=== PATIENT | male | born 1960 | race Caucasian/White ===

== ENCOUNTER 2022-03-18 05:30 | Inpatient (IN) ==
--- NOTE | 2022-03-18 06:01 | Emergency Department Note ---
Impression & Plan Aspiration pneumonia ADMIT ED Provider Note HPI: The patient is a 61-year-old male with history of dementia, DNR/DNI comfort measures only CODE STATUS, presents the emergency department with possible aspiration from [facility]. Patient reportedly had some altered mentation at his nursing facility tonight, one of the caretakers attempted to give him some pudding because his blood sugar was noted to be low with his episode of altered mentation. Patient took a few bites and then reportedly was not swallowing the pudding very well and began to cough. He was then given 2 doses of IM glucagon. Blood sugar on recheck was 102 however the patient continued to have some increased work of breathing and then had some diminished mentation, oxygen saturation was noted to be 68% and therefore EMS was contacted. Patient maintained low oxygen saturations per EMS despite nasal cannula oxygen in the high 70s. On arrival here to the ED he has oxygen sa turations at 75% on nasal cannula oxygen. 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 Patient reportedly was lethargic, had hypoglycemia, apparently there was an attempt to feed him some pudding secondary to his hypoglycemia and he began to cough and had some increased work of breathing. On arrival here to the ED he is hypoxic on nasal cannula oxygen at 76%. He does display increased work of breathing and is coarse bilateral breath sounds. Patient has a history of dementia, he does arrive with POLST form that states he is DNR/DNI, comfort measures only. IV was established, lab work obtained, chest x-ray ordered, patient was maintained on high flow nasal cannula oxygen while clarification of his current condition was obtained. I did discuss the case with his son, Lencho, on the phone, he states that the patient is DNR/DNI, he would like limited interventions to this point to assist with the patient's comfort and breathing. He will be coming from the [facility] to see his father as he is noted to be in critical condition. Chest x-ray does show evidence of apparent opacity in the right lower lobe likely consistent with aspiration pneumonia, I think this is likely to be the source of the patient's hypoxia. He was given a dose of morphine for his increased work of breathing and comfort as well as Ativan for his anxiety, he does exhibit some delirium here in the ED as he is very anxious and removing his clothing and bed sheets, he has intermittently been pulling at his lines Morphine and Ativan did help with this. His oxygen saturations prior to admission are 84% on high flow nasal cannula. Patient's son is aware of his critical condition, plan will be for admission to the hospitalist service for palliative care consultation and comfort measures for the patient's respiratory failure. [facility] was consulted for admission. Critical Care Time: 40 minutes -Management of hypoxia with oxygen saturations of 76% despite nasal cannula oxygen, discussion with family members regarding plan of care and CODE STATUS, arrangement of admission for palliative care/comfort measures only Diagnosis: 1. Hypoxia 2. Aspiration PNA 3. Comfort measures only CODE STATUS Disposition: Admission Conrad Diaz DO Emergency Medicine Past Med/Surg History Medical History Dementia Diabetes Surgical History No pertinent past surgical history Social History Smoking Status: Unknown if ever smoked Hx Alcohol Use: No Hx Substance Use: No Preferred Language: Ukrainian Current Living Situation: Group Home Current Living Situation Comment: Currently living at [facility] current occupational status: retired Feels Safe at Home: Yes Home Meds Home Medications Medication Instructions Recorded Confirmed acetaminophen 325 mg capsule 325 mg PO QID PRN 05/10/21 05/10/21 bisacodyl 10 mg rectal suppository 10 mg ID DAILY PRN 05/10/21 05/10/21 (Dulcolax (bisacodyl)) divalproex 500 mg tablet,extended 500 mg PO BID tab 05/10/21 05/10/21 release 24 hr (Depakote ER) donepezil 10 mg tablet 10 mg PO DAILY 05/10/21 05/10/21 donepezil 5 mg tablet 5 mg PO DAILY 05/10/21 05/10/21 escitalopram oxalate 20 mg tablet 20 mg PO DAILY 05/10/21 05/10/21 (Lexapro) insulin aspart U-100 100 unit/mL 10 unit SUBCUT DAILY ml 05/10/21 05/10/21 subcutaneous cartridge (Novolog PenFill U-100 Insulin aspart) insulin aspart U-100 100 unit/mL 1 sliding scale dose SUBCUT 05/10/21 05/10/21 subcutaneous solution USEASDIRECTD insulin glargine 100 unit/mL (3 20 unit SUBCUT QAM 05/10/21 05/10/21 mL) subcutaneous pen (Lantus Solostar U-100 Insulin) lactulose 10 gram/15 mL oral 20 g PO BID 05/10/21 05/10/21 solution Results & Data (ED) Vital Signs Vital Signs - 24 hr 03/18/22 05:32 03/18/22 05:37 03/18/22 05:45 Temperature 35.9 C L Temperature Source Axillary Pulse Rate 102 H 99 H 104 H Pulse Rate [Apical] 105 H Pulse Rate from SpO2 Sensor 99 H 105 H Respiratory Rate 30 H 25 H 27 H Respiratory Effort / Characteristics Blood Pressure 111/70 166/103 H Blood Pressure [Right Arm] 166/103 H Blood Pressure Mean 83 124 Blood Pressure Mean [Right Arm] 124 Pulse Oximetry 75 L 82 L 83 L Oxygen Delivery Method Room Air High Flow Nasal Cannula Oxygen Flow Rate 40 Fraction of Inspired Oxygen 100 SaO2/FiO2 Ratio 83 Sepsis Recent Fever Within 48 Hours No Sepsis New/Unexplained Change in Mental Status No Sepsis Action Taken by Nursing Physician Notified Oxygen Flow Rate - Titration Fraction of Inspired Oxygen - Titration Pulse Oximetry Post Tiitration 03/18/22 05:52 03/18/22 05:56 03/18/22 06:00 Temperature Temperature Source Pulse Rate 115 H 105 H Pulse Rate [Apical] 104 H Pulse Rate from SpO2 Sensor 106 H Respiratory Rate 38 H 38 H Respiratory Effort / Characteristics Blood Pressure 139/94 Blood Pressure [Right Arm] 139/94 Blood Pressure Mean 109 Blood Pressure Mean [Right Arm] 109 Pulse Oximetry 86 L 84 L 85 L Oxygen Delivery Method High Flow Nasal Cannula High Flow Nasal Cannula Non-rebreather High Flow Nasal Cannula Oxygen Flow Rate 40 15 40 Fraction of Inspired Oxygen 100 100 SaO2/FiO2 Ratio 86 87 Sepsis Recent Fever Within 48 Hours Sepsis New/Unexplained Change in Mental Status Sepsis Action Taken by Nursing Oxygen Flow Rate - Titration 40 Fraction of Inspired Oxygen - Titration 100 Pulse Oximetry Post Tiitration 86 L 03/18/22 06:02 03/18/22 06:30 03/18/22 07:00 Temperature Temperature Source Pulse Rate 108 H 119 H Pulse Rate [Apical] 120 H Pulse Rate from SpO2 Sensor 109 H 119 H Respiratory Rate 42 H 40 H 32 H Respiratory Effort / Characteristics Spontaneous Accessory Muscle Use Blood Pressure Blood Pressure [Right Arm] Blood Pressure Mean Blood Pressure Mean [Right Arm] Pulse Oximetry 85 L 80 L 78 L Oxygen Delivery Method High Flow Nasal Cannula Non-rebreather High Flow Nasal Cannula Oxygen Flow Rate 40 40 Fraction of Inspired Oxygen 100 SaO2/FiO2 Ratio Sepsis Recent Fever Within 48 Hours Sepsis New/Unexplained Change in Mental Status Sepsis Action Taken by Nursing Oxygen Flow Rate - Titration Fraction of Inspired Oxygen - Titration Pulse Oximetry Post Tiitration 03/18/22 07:30 Temperature Temperature Source Pulse Rate 119 H Pulse Rate [Apical] Pulse Rate from SpO2 Sensor 119 H Respiratory Rate 33 H Respiratory Effort / Characteristics Blood Pressure Blood Pressure [Right Arm] Blood Pressure Mean Blood Pressure Mean [Right Arm] Pulse Oximetry 85 L Oxygen Delivery Method Oxygen Flow Rate Fraction of Inspired Oxygen SaO2/FiO2 Ratio Sepsis Recent Fever Within 48 Hours Sepsis New/Unexplained Change in Mental Status Sepsis Action Taken by Nursing Oxygen Flow Rate - Titration Fraction of Inspired Oxygen - Titration Pulse Oximetry Post Tiitration Laboratory Data Result diagrams: 03/18/22 05:45 03/18/22 06:31 Lab Results 03/18/22 03/18/22 03/18/22 Range/Units 05:45 05:45 05:53 WBC 5.08 (4.8-10.8) K/uL RBC 3.77 L (4.7-6.1) M/uL Hgb 12.0 L (14.0-18.0) g/dL Hct 35.2 L (42-52) % MCV 93.4 (80-100) fL MCH 31.8 (25-34) pg MCHC 34.1 (32-36) g/dL RDW Std Deviation 47.4 H (36.4-46.3) fL RDW Coeff of Joy 13.8 (11.5-14.5) % Plt Count 267 (130-400) K/uL MPV 10.6 H (7.4-10.4) fL Immature Gran % (Auto) 0.2 % Neut % (Auto) 68.5 % Lymph % (Auto) 23.8 % [place] % (Auto) 6.3 % Eos % (Auto) 0.8 % Baso % (Auto) 0.4 % Neut # (Auto) 3.48 (1.4-6.5) K/uL Lymph # (Auto) 1.21 (1.2-3.4) K/uL [place] # (Auto) 0.32 (0.11-0.59) K/uL Eos # (Auto) 0.04 (0-0.5) K/uL Baso # (Auto) 0.02 (0-0.2) K/uL Immature Gran # (Auto) 0.01 (0.00-0.02) K/uL POC VBG pH 7.33 L (7.36-7.41) POC VBG pCO2 51 H (38-50) mmHg POC VBG pO2 40 (30-55) mmHg POC VBG HCO3 27 (23-28) meq/L POC VBG Total CO2 28 (24-31) mmol/L POC Venous O2 Sat 71.0 (70-80) % POC VBG Base Excess 1.0 meq/L Sodium 137 (136-145) mmol/L Potassium TNP Chloride 100 (98-107) mmol/L Carbon Dioxide 25 (21-32) mmol/L Anion Gap 12 H (3-11) BUN 45 H (6-23) mg/dl Creatinine 1.55 H (0.6-1.4) mg/dl Est Cr Clr Drug Dosing 56.5 ml/min Est GFR ( Amer) 55.2 ml/min Est GFR (Non-Af Amer) 47.6 ml/min BUN/Creatinine Ratio 29.0 H (10-20) Glucose 153 H (70-99(Fasting)) mg/dl Calcium 9.2 (8.5-10.1) mg/dl Total Bilirubin 0.5 (0.2-1.0) mg/dl AST TNP ALT 20 (7-52) U/L Alkaline Phosphatase 56 (34-104) U/L Total Protein 7.1 (6.0-8.3) gm/dl Albumin 4.0 (3.4-5.0) gm/dl Globulin 3.1 (2.5-4.0) gm/dl Albumin/Globulin Ratio 1.3 (0.9-2) SARS-CoV-2, RNA, NAAT (NEGATIVE) 03/18/22 03/18/22 Range/Units 06:31 07:00 WBC (4.8-10.8) K/uL RBC (4.7-6.1) M/uL Hgb (14.0-18.0) g/dL Hct (42-52) % MCV (80-100) fL MCH (25-34) pg MCHC (32-36) g/dL RDW Std Deviation (36.4-46.3) fL RDW Coeff of Joy (11.5-14.5) % Plt Count (130-400) K/uL MPV (7.4-10.4) fL Immature Gran % (Auto) % Neut % (Auto) % Lymph % (Auto) % [place] % (Auto) % Eos % (Auto) % Baso % (Auto) % Neut # (Auto) (1.4-6.5) K/uL Lymph # (Auto) (1.2-3.4) K/uL [place] # (Auto) (0.11-0.59) K/uL Eos # (Auto) (0-0.5) K/uL Baso # (Auto) (0-0.2) K/uL Immature Gran # (Auto) (0.00-0.02) K/uL POC VBG pH (7.36-7.41) POC VBG pCO2 (38-50) mmHg POC VBG pO2 (30-55) mmHg POC VBG HCO3 (23-28) meq/L POC VBG Total CO2 (24-31) mmol/L POC Venous O2 Sat (70-80) % POC VBG Base Excess meq/L Sodium (136-145) mmol/L Potassium 4.4 Chloride (98-107) mmol/L Carbon Dioxide (21-32) mmol/L Anion Gap (3-11) BUN (6-23) mg/dl Creatinine (0.6-1.4) mg/dl Est Cr Clr Drug Dosing ml/min Est GFR ( Amer) ml/min Est GFR (Non-Af Amer) ml/min BUN/Creatinine Ratio (10-20) Glucose (70-99(Fasting)) mg/dl Calcium (8.5-10.1) mg/dl Total Bilirubin (0.2-1.0) mg/dl AST 22 ALT (7-52) U/L Alkaline Phosphatase (34-104) U/L Total Protein (6.0-8.3) gm/dl Albumin (3.4-5.0) gm/dl Globulin (2.5-4.0) gm/dl Albumin/Globulin Ratio (0.9-2) SARS-CoV-2, RNA, NAAT NEGATIVE (NEGATIVE) Administered Medications Discontinued Medications Glycopyrrolate (Glycopyrrolate 0.2 Mg/Ml Vial) 0.2 mg IV NOW STA Stop: 03/18/22 07:34 Last Admin: 03/18/22 07:39 Dose: 0.2 mg Documented by: [id number] Haloperidol Lactate (Haloperidol Lactate 5 Mg/Ml 1 Ml Vial) Confirm Administered Dose 5 mg .ROUTE .STK-MED ONE Stop: 03/18/22 07:32 Last Admin: 03/18/22 07:33 Dose: 5 mg Documented by: [id number] Haloperidol Lactate (Haloperidol Lactate 5 Mg/Ml 1 Ml Vial) 5 mg IV NOW STA Stop: 03/18/22 07:34 Last Admin: 03/18/22 07:37 Dose: Not Given Documented by: [id number] Sodium Chloride (Nss 1000ml) 1,000 mls @ 999 mls/hr IV .Q1H1M ONE Stop: 03/18/22 07:06 Last Admin: 03/18/22 07:11 Dose: 999 mls/hr Documented by: [id number] Ampicillin Sodium/Sulbactam Sodium 3,000 mg/ Sodium Chloride 108 mls @ 200 mls/hr IV NOW STA; Protocol Stop: 03/18/22 06:38 Last Infusion: 03/18/22 07:51 Dose: 0 mls/hr Documented by: [id number] Admin: 03/18/22 07:10 Dose: 200 mls/hr Documented by: [id number] Lorazepam (Lorazepam 2 Mg/1 Ml Vial) Confirm Administered Dose 1 mg .ROUTE .STK- MED ONE Stop: 03/18/22 06:38 Last Admin: 03/18/22 06:42 Dose: Not Given Documented by: [id number] Lorazepam (Lorazepam 2 Mg/1 Ml Vial) 1 mg IV NOW STA; Protocol Stop: 03/18/22 06:38 Last Admin: 03/18/22 06:41 Dose: 1 mg Documented by: [id number] Lorazepam (Lorazepam 2 Mg/1 Ml Vial) 1 mg IV NOW STA; Protocol Stop: 03/18/22 07:53 Last Admin: 03/18/22 07:56 Dose: 1 mg Documented by: [id number] Morphine Sulfate (Morphine Sulfate 4 Mg/Ml 1 Ml Carp\Vial) Confirm Administered Dose 4 mg .ROUTE .STGoLocal24-MED ONE Stop: 03/18/22 06:59 Last Admin: 03/18/22 07:00 Dose: 4 mg Documented by: [id number] Morphine Sulfate (Morphine Sulfate 4 Mg/Ml 1 Ml Carp\Vial) 4 mg IV NOW STA Stop: 03/18/22 07:04 Last Admin: 03/18/22 07:11 Dose: Not Given Documented by: [id number] Ondansetron HCl (Ondansetron Inj 2 Mg/Ml 2 Ml Vial) Confirm Administered Dose 4 mg .ROUTE .STGoLocal24-MED ONE Stop: 03/18/22 06:36 Last Admin: 03/18/22 06:42 Dose: Not Given Documented by: [id number] Ondansetron HCl (Ondansetron Inj 2 Mg/Ml 2 Ml Vial) 4 mg IV NOW STA Stop: 03/18/22 06:39 Last Admin: 03/18/22 06:42 Dose: 4 mg Documented by: [id number] Imaging Data Radiologist's Impression: Chest X-Ray 03/18/22 05:37 XR chest 1V portable HISTORY: 61 years-old Male SOB acute shortness of breath COMPARISON: None TECHNIQUE: AP view the chest FINDINGS: Limited exam secondary to positioning. The cardiac silhouette is enlarged. Perivascular congestion with interstitial coarsening. Trace pleural effusions. Multifocal right lung predominant and mild left basilar airspace opacities. No pneumothorax. Degenerative changes of the shoulders and spine. IMPRESSION: 1. Cardiomegaly with pulmonary vascular congestion and probable trace pleural effusions. 2. Multifocal right lung predominant and mild left basilar airspace opacities may represent an infectious or inflammatory pneumonitis. Asymmetric alveolar pulmonary edema could appear similarly. ACT 112: Negative or not required by law. The above report was generated using voice recognition software. It may contain grammatical, syntax or spelling errors. Electronically signed by: John Antoine M.D. 03/18/2022 6:44 AM Discharge Plan Visit Data Chief Complaint: Shortness of Breath/Dyspnea ED Provider: Conrad Diaz Discharge Problem: Aspiration pneumonia Forms Stand Alone Forms: [facility] [employer] Prescriptions Prescriptions: No Action donepezil 10 mg tablet 10 mg PO DAILY RF: 0 donepezil 5 mg tablet 5 mg PO DAILY RF: 0 escitalopram oxalate [Lexapro] 20 mg tablet 20 mg PO DAILY RF: 0 Lantus Solostar U-100 Insulin 100 unit/mL (3 mL) insulin pen 20 unit subcut QAM RF: 0 divalproex [Depakote ER] 500 mg tablet extended release 24 hr 500 mg PO BID RF: 0 lactulose 10 gram/15 mL solution 20 g PO BID RF: 0 insulin aspart U-100 100 unit/mL solution 1 sliding scale dose subcut USEASDIRECTD RF: 0 acetaminophen 325 mg capsule 325 mg PO QID PRNRF: 0 bisacodyl [Dulcolax (bisacodyl)] 10 mg suppository 10 mg ID DAILY PRNRF: 0 insulin aspart U-100 [Novolog PenFill U-100 Insulin] 100 unit/mL cartridge 10 unit subcut DAILY RF: 0 Referrals Referrals: Wallace Gasca [Primary Care Provider] - Discharge Problem: Aspiration pneumonia Qualifiers: Aspiration pneumonia type: unspecified Laterality: right Lung location: lower lobe of lung Qualified Code(s): J69.0 - Pneumonitis due to inhalation of food and vomit
[2022-03-18 06:02] LABS: Basophils # (auto) 0.02 K/uL (0-0.2); Basophils % (auto) 0.4 %; Eosinophils # (auto) 0.04 K/uL (0-0.5); Eosinophils % (auto) 0.8 %; Hematocrit (blood only) 35.2 % (42-52); Immature Granulocytes # (auto) 0.01 K/uL (0.00-0.02); Immature Granulocytes % (auto) 0.2 %; Lymphocytes # (auto) 1.21 K/uL (1.2-3.4); Lymphocytes % (auto) 23.8 %; Mean Corpuscular Hemoglobin 31.8 pg (25-34); Mean Corpuscular Hgb Conc 34.1 g/dL (32-36); Mean Corpuscular Volume 93.4 fL (80-100); Mean Platelet Volume 10.6 fL (7.4-10.4); Monocytes # (auto) 0.32 K/uL (0.11-0.59); Monocytes % (auto) 6.3 %; Neutrophils # (auto) 3.48 K/uL (1.4-6.5); Neutrophils % (auto) 68.5 %; Platelet Count 267 K/uL (130-400); RDW Coefficient of Variation 13.8 % (11.5-14.5); RDW Standard Deviation 47.4 fL (36.4-46.3); Red Blood Count 3.77 M/uL (4.7-6.1); White Blood Count 5.08 K/uL (4.8-10.8)
[2022-03-18] MEDS ORDERED: SODIUM CHLORIDE 0.9% 1000ML 1,000 ML IV ONE (06:06)
[2022-03-18] MEDS ORDERED: AMPICILLIN/SULBACTAM SOD 3,000 MG in 0.9 % SODIUM CHLORIDE 100 ML IV STA (06:06)
[2022-03-18 06:07] LABS: iSTAT Venous Carbon Dioxide 28 mmol/L (24-31)
[2022-03-18 06:28] LABS: Alanine Aminotransferase 20 U/L (7-52); Albumin Globulin Ratio 1.3 (0.9-2); Alkaline Phosphatase 56 U/L (34-104); Anion Gap 12 (3-11); Bilirubin,Total 0.5 mg/dl (0.2-1.0); Blood Urea Nitrogen 45 mg/dl (6-23); Calcium 9.2 mg/dl (8.5-10.1); Carbon Dioxide 25 mmol/L (21-32); Chloride 100 mmol/L (98-107); Creatinine Clr Calc Pharmacy 56.5 ml/min; Est GFR (African American) 55.2 ml/min; Est GFR (Non-African American) 47.6 ml/min; Globulin 3.1 gm/dl (2.5-4.0); Glucose 153 mg/dl (70-99(Fasting)); Sodium 137 mmol/L (136-145); Total Protein 7.1 gm/dl (6.0-8.3)
[2022-03-18] MEDS ORDERED: ONDANSETRON INJ 2 MG/ML 2 ML VIAL ONE (06:35)
[2022-03-18] MEDS ORDERED: LORazepam 2 MG/1 ML VIAL IV STA ×3 (06:37→07:58)
[2022-03-18] MEDS ORDERED: LORazepam 2 MG/1 ML VIAL ONE (06:37)
[2022-03-18] MEDS ORDERED: ONDANSETRON INJ 2 MG/ML 2 ML VIAL IV STA (06:38)
--- NOTE | 2022-03-18 06:45 | XRay Report ---
XR chest 1V portable HISTORY: 61 years-old Male SOB acute shortness of breath COMPARISON: None TECHNIQUE: AP view the chest FINDINGS: Limited exam secondary to positioning. The cardiac silhouette is enlarged. Perivascular congestion wi th interstitial coarsening. Trace pleural effusions. Multifocal right lung predominant and mild left basilar airspace opacities. No pneumothorax. Degenerative changes of the shoulders and spine. IMPRESSION: 1. Cardiomegaly with pulmonary vascular congestion and probable trace pleural effusions. 2. Multifocal right lung predominant and mild left basilar airspace opacities may represent an infect ious or inflammatory pneumonitis. Asymmetric alveolar pulmonary edema could appear similarly. ACT 112: Negative or not required by law. The above report was generated using voice recognition software. It may contain grammatical, syntax o r spelling errors. Electronically signed by: John Antoine M.D. 03/18/2022 6:44 AM
[2022-03-18] MEDS ORDERED: MoRPHine SULFATE 4 MG/ML 1 ML CARP\\VIAL ONE ×2 (06:58→09:25)
[2022-03-18] MEDS ORDERED: MoRPHine SULFATE 4 MG/ML 1 ML CARP\\VIAL IV STA ×2 (07:03→09:26)
[2022-03-18 07:16] LABS: Potassium 4.4 mmol/L (3.5-5.1)
[2022-03-18] MEDS ORDERED: HALOPERIDOL LACTATE 5 MG/ML 1 ML VIAL ONE (07:31)
[2022-03-18] MEDS ORDERED: GLYCOPYRROLATE 0.2 MG/ML VIAL IV STA (07:33)
[2022-03-18] MEDS ORDERED: HALOPERIDOL LACTATE 5 MG/ML 1 ML VIAL IV STA (07:33)
[2022-03-18] MEDS ORDERED: ONDANSETRON INJ 2 MG/ML 2 ML VIAL IV PRN (08:37)
[2022-03-18] MEDS ORDERED: LORazepam 0.5 MG in SYRINGE 0.25 ML IV PRN (08:37)
[2022-03-18] MEDS ORDERED: ONDANSETRON 4 MG OD TAB SL PRN (08:37)
[2022-03-18] MEDS: MoRPHine SULFATE 2 MG/ML CARP IV PRN ×2 (08:58→10:35)
[2022-03-18] MEDS ORDERED: LORazepam 2 MG/1 ML VIAL IV PRN (09:17)
--- NOTE | 2022-03-18 09:23 | History & Physical Report ---
Date of Service March 18, 2022 Assessment & Plan (1) Comfort measures only status: Plan: 61M PMH Dementia DNR/DNI here for comfort measures for dyspnea. Acute respiratory failure sec to pneumonitis Severe Dementia -Comfort measures only care Comfort Measures Only -Per patient's POLST form, DNR/DNI, abx for comfort only -ordered PRN ativan, glycopyrrolate, zofran -started morphine drip -discontinued home PO medication -plan to downtitrate high flow nasal cannula -family updated 03/18 FENa: as tolerated Code Status: DNR/DNI DVT PPX: none PT/OT: none Bia Bishop Do PGY 2, FCM (2) Dementia: History of Present Illness Chief Complaint: SOB with Aspiration Primary Care Provider: Wallace Gasca 61yo Male PMH Dementia was noted at [facility] to be hypoglycemic this morning in 30's, nursing gave him pudding, he aspirated O2 sat decreased was brought to ED, CXR found opacities that may be infectious or inflammatory pneumonitis. He was placed on high flow nasal cannula satted 85%. Patient moaning and shivering in bed, son at bedside. Patient came in with POLST form describing comfort measures only, DNR/DNI, antibiotics only for comfort measures. Family understands that patient is on comfort measures, just wants him to be comfortable. Home Medications Medication Instructions Recorded Confirmed Type acetaminophen 325 mg capsule 325 mg PO QID PRN 05/10/21 05/10/21 History bisacodyl 10 mg rectal suppository 10 mg SC DAILY PRN 05/10/21 05/10/21 History (Dulcolax (bisacodyl)) divalproex 500 mg tablet,extended 500 mg PO BID tab 05/10/21 05/10/21 History release 24 hr (Depakote ER) donepezil 10 mg tablet 10 mg PO DAILY 05/10/21 05/10/21 History donepezil 5 mg tablet 5 mg PO DAILY 05/10/21 05/10/21 History escitalopram oxalate 20 mg tablet 20 mg PO DAILY 05/10/21 05/10/21 History (Lexapro) insulin aspart U-100 100 unit/mL 10 unit SUBCUT DAILY ml 05/10/21 05/10/21 History subcutaneous cartridge (Novolog PenFill U-100 Insulin aspart) insulin aspart U-100 100 unit/mL 1 sliding scale dose SUBCUT 05/10/21 05/10/21 History subcutaneous solution USEASDIRECTD insulin glargine 100 unit/mL (3 20 unit SUBCUT QAM 05/10/21 05/10/21 History mL) subcutaneous pen (Lantus Solostar U-100 Insulin) lactulose 10 gram/15 mL oral 20 g PO BID 05/10/21 05/10/21 History solution Past Med/Surg History Medical History Dementia Diabetes Surgical History No pertinent past surgical history Social History Smoking Status: Unknown if ever smoked Hx Alcohol Use: No Hx Substance Use: No Preferred Language: Setswana Conference Concierge Required: No Current Living Situation: [place] Current Living Situation Comment: Currently living at [facility] current occupational status: retired Feels Safe at Home: Yes Review of Systems Review of Systems: Unobtainable due to cognitive status Physical Exam Constitutional: + frail appearing and + in distress Neck: trachea midline, no thyromegaly Respiratory: + respiratory distress and + tachypneic Auscultation: lungs clear to auscultation bilaterally Cardiovascular: Rate/Rhythm: + tachycardic Heart Sounds: normal S1 and normal S2 Extremities: no edema Chest (Breasts): Chest: normal inspection of chest Gastrointestinal (Abdomen): Inspection/Auscultation: abdomen normal to inspection; abdomen not distended Percussion/Palpation: abdomen soft Skin: no rashes, warm and dry Results & Data Results & Data ([facility]) Vital Signs (Past 12 Hours) Vital Signs Temp Pulse Pulse Resp BP BP Pulse Ox 03/18/22 07:30 119 H 33 H 85 L 03/18/22 07:00 119 H 32 H 78 L 03/18/22 06:30 108 H 40 H 80 L 03/18/22 06:02 120 H 42 H 85 L 03/18/22 06:00 105 H 104 H 38 H 139/94 139/94 85 L 03/18/22 05:56 84 L 03/18/22 05:52 115 H 38 H 86 L 03/18/22 05:45 104 H 105 H 27 H 166/103 H 166/103 H 83 L 03/18/22 05:37 99 H 25 H 82 L 03/18/22 05:32 35.9 C L 102 H 30 H 111/70 75 L Diagnostic Findings Laboratory Results WBC 5.08 K/uL (4.8-10.8) 03/18/22 05:45 RBC 3.77 M/uL (4.7-6.1) L 03/18/22 05:45 Hgb 12.0 g/dL (14.0-18.0) L 03/18/22 05:45 Hct 35.2 % (42-52) L 03/18/22 05:45 MCV 93.4 fL (80-100) 03/18/22 05:45 MCH 31.8 pg (25-34) 03/18/22 05:45 MCHC 34.1 g/dL (32-36) 03/18/22 05:45 RDW Std Deviation 47.4 fL (36.4-46.3) H 03/18/22 05:45 RDW Coeff of Joy 13.8 % (11.5-14.5) 03/18/22 05:45 Plt Count 267 K/uL (130-400) 03/18/22 05:45 MPV 10.6 fL (7.4-10.4) H 03/18/22 05:45 Immature Gran % (Auto) 0.2 % 03/18/22 05:45 Neut % (Auto) 68.5 % 03/18/22 05:45 Lymph % (Auto) 23.8 % 03/18/22 05:45 [place] % (Auto) 6.3 % 03/18/22 05:45 Eos % (Auto) 0.8 % 03/18/22 05:45 Baso % (Auto) 0.4 % 03/18/22 05:45 Neut # (Auto) 3.48 K/uL (1.4-6.5) 03/18/22 05:45 Lymph # (Auto) 1.21 K/uL (1.2-3.4) 03/18/22 05:45 [place] # (Auto) 0.32 K/uL (0.11-0.59) 03/18/22 05:45 Eos # (Auto) 0.04 K/uL (0-0.5) 03/18/22 05:45 Baso # (Auto) 0.02 K/uL (0-0.2) 03/18/22 05:45 Immature Gran # (Auto) 0.01 K/uL (0.00-0.02) 03/18/22 05:45 POC VBG pH 7.33 (7.36-7.41) L 03/18/22 05:53 POC VBG pCO2 51 mmHg (38-50) H 03/18/22 05:53 POC VBG pO2 40 mmHg (30-55) 03/18/22 05:53 POC VBG HCO3 27 meq/L (23-28) 03/18/22 05:53 POC VBG Total CO2 28 mmol/L (24-31) 03/18/22 05:53 POC Venous O2 Sat 71.0 % (70-80) 03/18/22 05:53 POC VBG Base Excess 1.0 meq/L 03/18/22 05:53 Sodium 137 mmol/L (136-145) 03/18/22 05:45 Potassium 4.4 mmol/L (3.5-5.1) 03/18/22 06:31 Chloride 100 mmol/L (98-107) 03/18/22 05:45 Carbon Dioxide 25 mmol/L (21-32) 03/18/22 05:45 Anion Gap 12 (3-11) H 03/18/22 05:45 BUN 45 mg/dl (6-23) H 03/18/22 05:45 Creatinine 1.55 mg/dl (0.6-1.4) H 03/18/22 05:45 Est Cr Clr Drug Dosing 56.5 ml/min 03/18/22 05:45 Est GFR ( Amer) 55.2 ml/min 03/18/22 05:45 Est GFR (Non-Af Amer) 47.6 ml/min 03/18/22 05:45 BUN/Creatinine Ratio 29.0 (10-20) H 03/18/22 05:45 Glucose 153 mg/dl (70-99(Fasting)) H 03/18/22 05:45 Calcium 9.2 mg/dl (8.5-10.1) 03/18/22 05:45 Total Bilirubin 0.5 mg/dl (0.2-1.0) 03/18/22 05:45 AST 22 U/L (13-39) 03/18/22 06:31 ALT 20 U/L (7-52) 03/18/22 05:45 Alkaline Phosphatase 56 U/L (34-104) 03/18/22 05:45 Total Protein 7.1 gm/dl (6.0-8.3) 03/18/22 05:45 Albumin 4.0 gm/dl (3.4-5.0) 03/18/22 05:45 Globulin 3.1 gm/dl (2.5-4.0) 03/18/22 05:45 Albumin/Globulin Ratio 1.3 (0.9-2) 03/18/22 05:45 SARS-CoV-2, RNA, NAAT NEGATIVE (NEGATIVE) 03/18/22 07:00 Impressions Chest X-Ray 03/18/22 05:37 XR chest 1V portable HISTORY: 61 years-old Male SOB acute shortness of breath COMPARISON: None TECHNIQUE: AP view the chest FINDINGS: Limited exam secondary to positioning. The cardiac silhouette is enlarged. Perivascular congestion with interstitial coarsening. Trace pleural effusions. Multifocal right lung predominant and mild left basilar airspace opacities. No pneumothorax. Degenerative changes of the shoulders and spine. IMPRESSION: 1. Cardiomegaly with pulmonary vascular congestion and probable trace pleural effusions. 2. Multifocal right lung predominant and mild left basilar airspace opacities may represent an infectious or inflammatory pneumonitis. Asymmetric alveolar pulmonary edema could appear similarly. ACT 112: Negative or not required by law. The above report was generated using voice recognition software. It may contain grammatical, syntax or spelling errors. Electronically signed by: John Antoine M.D. 03/18/2022 6:44 AM Code Status & VTE Plan Code Status DNR/DNI Supervising Physician Co-Signing Physician Notes Resident Physician Supervision Note: I independently interviewed and examined the patient and verified the blunt history and physical, reviewed labs and image studies and agree with resident Dr. Bishop findings and care plan. Resident Activity Tracking Resident Involvement: Resident Care Provided Care Provided: Adult Hospital Medicine (1) Dementia Dementia behavioral disturbance: without behavioral disturbance Dementia type: unspecified type Qualified Code(s): F03.90 - Unspecified dementia without behavioral disturbance
[2022-03-18] MEDS ORDERED: STAT IV Infusion **Titration per Protocol STA (10:17)
--- NOTE | 2022-03-18 10:28 | Electrocardiogram Report ---
Test Reason : Blood Pressure : / mmHG Vent. Rate : 100 BPM Atrial Rate : 100 BPM P-R Int : 144 ms QRS Dur : 096 ms QT Int : 370 ms P-R-T Axes : 008 050 022 degrees QTc Int : 477 ms Poor data quality, interpretation may be adversely affected Normal sinus rhythm Nonspecific T wave abnormality Inferior leads Abnormal ECG When compared with ECG of 10-MAY-2021 14:52, Nonspecific T wave abnormality now evident in Inferior leads Confirmed by Melo Campbell ([id number]) on 03/18/2022 10:27:54 AM Referred By: REFERRED SELF Confirmed By:Melo Campbell
[2022-03-18] MEDS: MoRPHine SULF/NSS 100 MG/100 ML BAG IV SCH (11:33)
[2022-03-18] MEDS: GLYCOPYRROLATE 0.2 MG/ML VIAL IV PRN ×2 (16:44→21:25)
[2022-03-19] MEDS: MoRPHine SULF/NSS 100 MG/100 ML BAG IV SCH (00:12)
--- NOTE | 2022-03-19 10:37 | Death Pronouncement Note ---
Date of Service March 19, 2022 Pronouncement Note Admission Date Admission Date: March 18, 2022 Date and Time of Date of : 03/19/22 Time of : 10:22 Contributing Factors (1) Comfort measures only status: (2) Dementia: Additional Data Confirmation of : no pulse, no respirations, no heart sounds and pupils fixed and dilated Family: at bedside Additional persons at bedside: other (RN) Attending/PCP notified?: Yes Attending physician: Anel Bales MD Was code activated?: No Advance directives: Yes
--- NOTE | 2022-03-19 10:56 | Discharge Summary ---
Date of Service March 19, 2022 Admission HPI Per Admitting Provider 61yo Male PMH Dementia was noted at [facility] to be hypoglycemic this morning in 30's, nursing gave him pudding, he aspirated O2 sat decreased was brought to ED, CXR found opacities that may be infectious or inflammatory pneumonitis. He was placed on high flow nasal cannula satted 85%. Patient moaning and shivering in bed, son at bedside. Patient came in with POLST form describing comfort measures only, DNR/DNI, antibiotics only for comfort measures. Family understands that patient is on comfort measures, just wants him to be comfortable. Admission Exam Per Admitting Provider Constitutional: + frail appearing and + in distress Neck: trachea midline, no thyromegaly Respiratory: + respiratory distress and + tachypneic Auscultation: lungs clear to auscultation bilaterally Cardiovascular: Rate/Rhythm: + tachycardic Heart Sounds: normal S1 and normal S2 Extremities: no edema Chest (Breasts): Chest: normal inspection of chest Gastrointestinal (Abdomen): Inspection/Auscultation: abdomen normal to inspection; abdomen not distended Percussion/Palpation: abdomen soft Skin: no rashes, warm and dry Principal Diagnosis acute respiratory failure secondary to pneumonitis; severe dementia Discharge Exam No pulse, no respirations, no heart sounds, pupils fixed and dilated. Discharge Data Consultations 03/18/22 07:21 ED Decision to Admit Stat Hospital Course (1) Comfort measures only status: 61M with PMHx of dementia and status DNR/DNI admitted 03/18/22 for comfort measures for dyspnea. Acute respiratory failure secondary to pneumonitis; severe dementia - Patient received comfort measures only care based on his POLST form/patient wishes - Received prn ativan, glycopyrrolate, zofran, and morphine gtt - Family was at bedside; patient 03/19/22, time of 10:22 AM (2) Dementia: Total Time Total Time Spent Total Time Spent (In Minutes): See attending attestation Discharge Plan Discharge Items Patient Disposition: Other Date/Time: 03/19/22 10:22 Supervising Physician Co-Signing Physician Notes Resident Physician Supervision Note: I independently interviewed nursing and examined the patient and verified the blunt history and physical, reviewed chart and agree with resident Dr. Torres findings and care plan. Patient nonresponsive sedated this am having agonal breathing. On IV morhpine drip. Pronounced later in the morning.
== END 2022-03-19 12:42 | disposition expired | DRG 177 ==
LOC: ED 05:30 → 3E 10:40